=== PATIENT | female | born 1960 | race Caucasian/White ===

== ENCOUNTER → 2018-05-17 08:09 | Outpatient (CLI) | payer OTHER, SELFPAY ==
--- NOTE | 2018-05-17 | DI.MG.S_ITS ---
BILATERAL DIGITAL SCREENING MAMMOGRAM 3D/2D WITH CAD: 05/17/2018 CLINICAL: Routine screening. Comparison is made to exams dated: 02/02/2015 mammogram, 01/30/2014 mammogram, and 01/29/2013 mammogram - [facility]. There are scattered fibroglandular elements in both breasts. Current study was also evaluated with a Computer Aided Detection (CAD) system. No significant masses, calcifications, or other findings are seen in either breast. There has been no significant interval change. IMPRESSION: NEGATIVE There is no mammographic evidence of malignancy. A 1 year screening mammogram is recommended. This exam was interpreted at Station ID: [id number]. NOTE: For mammograms, a report in lay terms will be sent to the patient. Approximately 15% of breast malignancies will not be visualized mammographically. In the management of a palpable breast mass, a negative mammogram must not discourage biopsy of a clinically suspicious lesion. Electronically Signed By: Harshil bell/rao:05/17/2018 14:04:19 letter sent: Normal Exam ACR BI-RADS Category 1: Negative [id number]
--- NOTE | 2018-05-17 | DI.RAD.S_ITS ---
This blank DEXA report has been sent in error by the PACS system. The correct and complete report will be forthcoming in 1-2 days. Thank you for your patience and understanding. Dictated by: Shadi Polanco M.D. on 05/17/2018 at 14:25 Approved by: Shadi Polanco M.D. on 05/17/2018 at 14:29
--- NOTE | 2018-05-17 | DI.US.S_ITS ---
PROCEDURE: US THYROID INDICATIONS: ASYMPTOMATIC MENOPAUSAL/THYROID NODULES TECHNIQUE: Real-time scanning was performed of the thyroid gland, with image documentation. COMPARISON: [facility], US, THYROID, 10/02/2011, 10:13. FINDINGS: Right: Thyroid lobe measures 5.1 x 2 x 1.5 cm, and is homogeneous in echotexture. Left: Thyroid lobe measures 4.9 x 1.0 x 1.5 cm, and is homogenous in echotexture. Isthmus: 2 mm thick. Nodule number: #1 Location: Upper pole of right thyroid lobe Size: 0.7 x 0.4 x 0.5 cm. Composition: Predominantly cystic Echogenicity: Hypoechoic Shape: Wider than tall Margins: Smooth Echogenic foci: None Total points: 3 ACR TI-RADS category: 3 Nodule number: #2 Location: Mid pole of right thyroid lobe Size: 0.7 x 0.5 x 0.6 cm. Composition: Predominantly solid Echogenicity: Markedly hypoechoic Shape: Wider than tall Margins: Smooth Echogenic foci: None Total points: 5 ACR TI-RADS category: 4 Nodule number: #3 Location: Lower pole of right thyroid lobe Size: 0.7 x 0.3 x 0.5 cm. Composition: Predominantly solid Echogenicity: Isoechoic Shape: Wider than tall Margins: Smooth Echogenic foci: None Total points: 3 ACR TI-RADS category: 3 Nodule number: #4 Location: Mid pole of left thyroid lobe Size: 0.9 x 0.5 x 0.6 cm. Composition: Solid Echogenicity: Hypoechoic Shape: Wider than tall Margins: Smooth Echogenic foci: None Total points: 4 ACR TI-RADS category: 4 Nodule number: #5 Location: Lower pole of left thyroid lobe Size: 0.4 x 0.2 x 0.3 cm. Composition: Cystic Echogenicity: Markedly hypoechoic Shape: Wider than tall Margins: Smooth Echogenic foci: None Total points: 3 ACR TI-RADS category: 3 IMPRESSION: Bilateral subcentimeter thyroid nodules as described in detail above. Continued sonographic followup is recommended. ACR TI-RADS definitions and recommendations: TI-RADS 1 (benign): 0 points. FNA not needed. TI-RADS 2 (not suspicious): 2 points. FNA not needed. TI-RADS 3 (mildly suspicious): 3 points. * FNA if 2.5 cm or larger, follow up if 1.5 cm or larger (at 1, 3, and 5 years). TI-RADS 4 (moderately suspicious): 4-6 points. * FNA if 1.5 cm or larger, follow up if 1 cm or larger (at 1, 2, 3, and 5 years). TI-RADS 5 (highly suspicious): 7 points or more. * FNA if 1 cm or larger, follow up if 0.5 cm or larger (every year for 5 years). Dictated by: Shadi Polanco M.D. on 05/17/2018 at 14:02 Approved by: Shadi Polanco M.D. on 05/17/2018 at 14:09
[2018-05-17 08:52] LABS: Add Manual Diff / Slide Review NO; Basophils Absolute Auto 100 /uL (0-100); Basophils Percent Auto 0.5 % (0-2); Eosinophils Absolute Auto 200 /uL (0-450); Eosinophils Percent Auto 2.3 % (2-4); Hematocrit 41.8 % (36-46); Hemoglobin 13.8 g/dL (12.0-16.0); Lymphocytes Absolute Auto 2800 /uL (1100-4500); Lymphocytes Percent Auto 26.5 % (25-40); Mean Corpuscular Hemoglobin 28.6 PG (26-34); Mean Corpuscular Volume 86.9 fL (80-100); Monocytes Absolute Auto 500 /uL (0-900); Monocytes Percent Auto 4.4 % (3-14); Neutrophils Absolute Auto 7000 /uL (1500-7000); Neutrophils Percent Auto 66.3 % (50-75); Platelet Count 311 X10^3/uL (150-400); Red Blood Cell Count 4.81 X10^6/uL (4.0-5.2); Red Cell Distribution Width 13.4 % (11.6-14.8); White Blood Cell Count 10.6 X10^3/uL (4.5-11.0)
[2018-05-17 09:11] LABS: Alanine Aminotransferase 16 IU/L (9-52); Albumin 4.3 g/dL (3.5-5.0); Albumin Globulin Ratio 1.4 (1.0-2.8); Alkaline Phosphatase 98 U/L (38-126); Aspartate Aminotransferase 16 IU/L (14-36); BUN Creatinine Ratio 32.9 (6-22); Bilirubin Total 0.3 mg/dL (0.2-1.3); Blood Urea Nitrogen 23 mg/dL (7-17); Calcium 9.4 mg/dL (8.4-10.2); Carbon Dioxide 25 mmol/L (22-32); Chloride 106 mmol/L (98-107); Cholesterol 199 mg/dL (140-199); Estimated Glomerular Filt Rate > 60.0 mL/min (>60); Globulin 3.1 g/dL (1.7-4.1); Glucose 104 mg/dL (70-100); HDL Cholesterol 49 mg/dL (40-60); HEMOLYSIS < 15 (0-50); LDL Cholesterol Calculated 113 mg/dL (<100); Potassium 4.4 mmol/L (3.4-5.1); Sodium 140 mmol/L (137-145); Total Protein 7.4 g/dL (6.3-8.2); Triglycerides 187 mg/dL (35-150)
== END ==
PROVIDERS: Visit Provider Physician Assistant Medical
DX: Z12.31 Encounter for screening mammogram for malignant neoplasm of breast (principal); E04.2 Nontoxic multinodular goiter; Z78.0 Asymptomatic menopausal state; E03.9 Hypothyroidism, unspecified; E78.2 Mixed hyperlipidemia; F17.200 Nicotine dependence, unspecified, uncomplicated; Z82.62 Family history of osteoporosis; Z51.81 Encounter for therapeutic drug level monitoring
CPT/HCPCS: 36415; 76536; 77063; 77067; 77080; 80053; 80061; 84443; 85025

== ENCOUNTER 2019-03-16 11:36 | Emergency (ER) | payer OTHER, SELFPAY ==
[2019-03-16 11:38] VITALS: BP 129/79; PULSE 95; RESP 18; TEMP 36.4; O2SAT 100
--- NOTE | 2019-03-16 12:16 | PC.NURSE ---
CSM wnl. Pain occasionally radiates down front of right leg. Also c/o right foot pain, ongoing, that feels like previous plantar fasciatis. CSM wnl. + pulse distally. Also c/o skin rash. Ran out of her clobetosol. Would like a refill.
[2019-03-16] MEDS: CYCLOBENZAPRINE 10 MG TABLET PO (13:27)
[2019-03-16] MEDS: ACETAMINOPHEN 325 MG TABLET 650 MG PO (13:27)
[2019-03-16] MEDS: predniSONE 20 MG TABLET 40 MG PO (13:28)
[2019-03-16] MEDS: KETOROLAC 60 MG/2 ML VIAL 30 MG IM (13:29)
[2019-03-16] MEDS: PANTOPRAZOLE 20 MG TABLET PO (13:30)
[2019-03-16 14:40] VITALS: BP 137/91; PULSE 84; RESP 18; O2SAT 99
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
== END 2019-03-16 14:42 | disposition home or self-care (01) ==
PROVIDERS: Emergency Provider Nurse Practitioner Family
DX: S39.012A Strain of muscle, fascia and tendon of lower back, initial encounter (principal); L30.9 Dermatitis, unspecified
CPT/HCPCS: 81003; 96372; 99283; 99284; J1885

== ENCOUNTER → 2020-04-16 07:26 | Outpatient (CLI) | payer OTHER, SELFPAY ==
[2020-04-16 08:48] LABS: Alanine Aminotransferase 17 IU/L (<35); Albumin 4.4 g/dL (3.5-5.0); Albumin Globulin Ratio 1.5 (1.0-2.8); Alkaline Phosphatase 95 U/L (38-126); Aspartate Aminotransferase 24 IU/L (14-36); BUN Creatinine Ratio 22.2 (6-22); Bilirubin Total 0.4 mg/dL (0.2-1.3); Blood Urea Nitrogen 16 mg/dL (7-17); Calcium 9.5 mg/dL (8.4-10.2); Carbon Dioxide 26 mmol/L (22-32); Chloride 107 mmol/L (98-107); Cholesterol 234 mg/dL (140-199); Estimated Glomerular Filt Rate > 60.0 mL/min (>60); Globulin 2.9 g/dL (1.7-4.1); Glucose 108 mg/dL (80-110); HDL Cholesterol 57 mg/dL (40-60); HEMOLYSIS < 15 (0-50); LDL Cholesterol Calculated 132 mg/dL (<100); Potassium 4.2 mmol/L (3.4-5.1); Sodium 138 mmol/L (137-145); Total Protein 7.3 g/dL (6.3-8.2); Triglycerides 226 mg/dL (35-150)
[2020-04-16 08:49] LABS: Hematocrit 41.1 % (36-46); Mean Corpuscular Hemoglobin 29.7 PG (26-34); Mean Corpuscular Volume 87.5 fL (80-100); Platelet Count 271 X10^3/uL (150-400); Red Cell Distribution Width 13.6 % (11.6-14.8); White Blood Cell Count 8.5 X10^3/uL (4.5-11.0)
[2020-04-16 09:54] LABS: TSH w/ Reflex to FT4 1.62 uIU/mL (0.47-4.68)
== END ==
PROVIDERS: PCP Registered Nurse Diabetes Educator; Referring Provider Registered Nurse Diabetes Educator; Visit Provider Registered Nurse Diabetes Educator
DX: E03.9 Hypothyroidism, unspecified (principal); E78.5 Hyperlipidemia, unspecified
CPT/HCPCS: 36415; 80053; 80061; 84443; 85027

== ENCOUNTER 2020-10-17 16:49 | Emergency (ER) | payer OTHER, SELFPAY ==
[2020-10-17 16:55] VITALS: BP 162/98; PULSE 108; RESP 20; TEMP 36.9; O2SAT 97
--- NOTE | 2020-10-17 18:23 | DI.RAD.S_ITS ---
PROCEDURE: XR KNEE LT 3V INDICATIONS: pain, heard a pop TECHNIQUE: Three views of the knee were acquired. COMPARISON: None. FINDINGS: Bones: No fractures or dislocations. No suspicious bony lesions. Soft tissues: Small joint effusion. No suspicious soft tissue calcifications. IMPRESSION: 1. No visible fractures. 2. Small joint effusion may indicate internal derangement. Consider MRI if there is no improvement with conservative management. Dictated by: Miley Avalos M.D. on 10/17/2020 at 18:54 Approved by: Miley Avlaos M.D. on 10/17/2020 at 18:55
--- NOTE | 2020-10-17 19:09 | ED_ITS ---
HPI - Extremity Injury (Lower) General Chief Complaint: Extremity Injury, Lower Stated Complaint: LT KNEE POP Time Seen by Provider: 10/17/20 19:08 Source: patient Mode of arrival: Ambulatory Limitations: no limitations History of Present Illness HPI Narrative: This is a 59-year-old female comes emergency department complaint of left knee pain. Patient felt a pop in left knee after she [place] She states that she has pain with weight-bearing. It feels like the knee wants to give way. Patient describes as being sort of inside the knee itself. She has noted a little bit of swelling. She noted some pain radiating up her leg towards the buttock. Patient denies any prior knee issues. No prior surgeries to her knee. She denies any other injuries. She denies any numbness or tingling down her lower extremity. She has no pain or difficulty with movement her foot or ankle. Patient is on several medications for mental health. She is allergic to penicillin. Related Data Home Medications Medication Instructions Recorded Confirmed ashwaghanda PO 01/20/20 09/02/20 aspirin 81 mg tablet,delayed 81 mg PO DAILY 01/20/20 09/02/20 release diphenhydramine HCl 25 mg capsule 25 mg PO DAILY cap 01/20/20 09/02/20 (Benadryl) melatonin 10 mg capsule 10 mg PO BEDTIME PRN 01/20/20 09/02/20 nitric oxide PO 01/20/20 09/02/20 vitamin B complex (B 1 tab PO DAILY 01/20/20 09/02/20 Complex-Vitamin B12) Previous Rx's Medication Instructions Recorded atorvastatin 20 mg tablet 20 mg PO BEDTIME #90 tab 05/12/20 cyclobenzaprine 10 mg tablet 10 mg PO BEDTIME PRN #30 tab 08/19/20 varenicline 1 mg tablet (Chantix 1 mg PO BID #56 tab 09/02/20 Continuing Month Box) aripiprazole 2 mg tablet (Abilify) 2 mg PO DAILY #90 tab 09/03/20 duloxetine 30 mg capsule,delayed 90 mg PO DAILY #270 cap 09/03/20 release (Cymbalta) Allergies Allergy/AdvReac Type Severity Reaction Status Date / Time azithromycin [From Zithromax] Allergy Intermediate Rash Verified 09/02/20 15:19 Penicillins Allergy Mild rash Verified 09/02/20 15:19 Review of Systems Review of Systems ROS Unobtainable: All systems reviewed & are unremarkable except as noted in HPI and below Patient History Medical History Acne (~1971) Allergies (~2003) Anxiety (~2009) Carpal tunnel syndrome (~2004) Cervical spine fracture Chicken pox (~1965) Chronic back pain (~1995) Colon polyps (~2013) Current smoker Depression Dyshidrotic eczema Dyslipidemia Eczema (~2013) Endometriosis (~1985) Fibromyalgia (~2001) Foot pain (~2019) Hearing loss Heavy menstrual period (~1979) Hypothyroidism (~2009) Impaired fasting blood sugar Irregular menstrual cycle (~1979) Measles (~1967) Painful menstrual periods (~1979) Thyroid nodule (~2009) Wears glasses Surgical History Anesthesia Ectopic (~1985) History of hysterectomy (~1999) Torsion, fallopian tube (~1997) Family History Father Cancer Mother Cancer Grandmother History of heart disease Grandfather History of heart disease Grandmother Cancer Social History Smoking Status: Current every day smoker Smoking Status: Current every day smoker tobacco type: cigarettes alcohol intake frequency: 0-2 drinks per day Substance Use Type: marijuana Exam Narrative Exam Narrative: GENERAL: Alert and oriented x three, female in mild distress. HEENT: Head normocephalic, atraumatic, EOMI, pupils reactive, face symmetric, moist mucous membranes NECK: Supple, full range of motion CARDIOVASCULAR: Regular rate and rhythm without murmurs, rubs or gallops. RESPIRATORY: Breath sounds equal bilaterally, no wheezes rales or rhonchi. EXTREMITIES: Normal range of motion, no clubbing. Patient has swelling of the left knee with some mild bruising on the anterior prepatellar region. Patient has tenderness just inferior to the patella and over the medial tibia. No obvious deformity. Patient has slightly increased laxity with posterior drawer. Valgus and varus testing are normal with anterior drawer being normal. Patient has no other bony tenderness. Normal sensation throughout with otherwise normal movement of the extremity. Patient is able to flex and extend the knee. NEUROLOGICAL: Cranial nerves II through XII grossly intact. Moving all extremities SKIN: Warm, dry, no petechiae, no rashes or lesions. Initial Vital Signs Initial Vital Signs: Vital Signs Temperature 98.5 F 10/17/20 16:55 Pulse Rate 108 H 10/17/20 16:55 Respiratory Rate 20 10/17/20 16:55 Blood Pressure 162/98 H 10/17/20 16:55 Pulse Oximetry 97 10/17/20 16:55 Course Orders Ordered: ED Orders 10/17/20 18:23 XR knee LT 3V Stat Vital Signs Vital signs: Vital Signs - 8 hr 10/17/20 19:45 Pulse Rate 94 H Respiratory Rate 16 Blood Pressure 155/86 H Pulse Oximetry 98 MDM - Extremity Injury (Lower) Imaging Data Extremity x-ray #1: Radiologist's Impression: Launch?[address] [address] XRay Report Signed Patient: Carmen Arevalo MR#: [id number] : 1960 Acct:[id number] Age/Sex: 59 / F Date of Service: 10/17/20 Loc: ED Accession Number: [id number] ?? Procedure: XR knee LT 3V Ordering Provider: Deann Arriaga D.O. PROCEDURE:? XR KNEE LT 3V ? INDICATIONS:? pain, heard a pop ? TECHNIQUE:? Three views of the knee were acquired.? ? COMPARISON:? None. ? FINDINGS:? ? Bones:? No fractures or dislocations.? No suspicious bony lesions.? ? Soft tissues:? Small joint effusion.? No suspicious soft tissue calcifications.? ? ? IMPRESSION:? 1. No visible fractures. 2. Small joint effusion may indicate internal derangement.? Consider MRI if there is no improvement with conservative management.? ? ? Dictated by: Miley Avalos M.D. on 10/17/2020 at 18:54 ? ? Approved by: Miley Avalos M.D. on 10/17/2020 at 18:55?? [facility] Narrative Medical decision making narrative: 59-year-old female with likely ligamentous or tendon injury to her left knee. Patient does not have any fracture. She has some mild laxity with posterior drawer. Patient was given knee immobilizer, crutches. And plan for follow-up with primary care but referral for Orthopedics was also given. Discharge Plan Departure Patient Disposition: Home Clinical Impression: Left knee sprain Instructions: DI for Knee Sprain Activity Restrictions/Additional Instructions: Follow-up with your primary care physician in the next week for recheck. If your symptoms have completely resolved you do not have to follow-up. Weightbear as tolerated. Use crutches until you can weightbear without any pain. You may take Aleve as directed. He may also add Tylenol up to a 1000 mg every 8 hours as needed for pain. Splint Care: Keep the immobilizerclean and dry. Elevated affected body part to decrease swelling. OK to use ice pack on the affected body part. Use for 15-20 minutes each time, for 5-6x per day. If you develop worsening pain, numbness, tingling, discoloration of the affected body part, loosen knee immobilizer,and either see your doctor for an urgent re-assessment, or return to the Emergency Department. Return to the Emergency Department for any new or worsening symptoms. Prescriptions: No Action cyclobenzaprine 10 mg tablet 10 mg PO BEDTIME PRN (Reason: muscle spasm) Qty: 30 RF: 1 aspirin 81 mg tablet,delayed release (DR/EC) 81 mg PO DAILY RF: 0 nitric oxide tablet PO RF: 0 vitamin B complex [B Complex-Vitamin B12] Tablet 1 tab PO DAILY RF: 0 melatonin 10 mg capsule 10 mg PO BEDTIME PRNRF: 0 diphenhydramine HCl [Benadryl] 25 mg capsule 25 mg PO DAILY RF: 0 ashwaghanda 2,000 mg PO RF: 0 atorvastatin 20 mg tablet 20 mg PO BEDTIME Qty: 90 RF: 3 Chantix Continuing Month Box 1 mg tablet 1 mg PO BID Qty: 56 RF: 2 aripiprazole [Abilify] 2 mg tablet 2 mg PO DAILY Qty: 90 RF: 2 duloxetine [Cymbalta] 30 mg capsule,delayed release(DR/EC) 90 mg PO DAILY Qty: 270 RF: 2 Referrals: Elijah Moore ARNP [Primary Care Provider] - Mike Saldana MD [Physician] -
[2020-10-17 19:45] VITALS: BP 155/86; PULSE 94; RESP 16; O2SAT 98
== END 2020-10-17 19:46 | disposition home or self-care (01) ==
PROVIDERS: Emergency Provider Emergency Medicine; PCP Registered Nurse Diabetes Educator
DX: S83.92XA Sprain of unspecified site of left knee, initial encounter (principal); X58.XXXA Exposure to other specified factors, initial encounter
CPT/HCPCS: 73562; 99283

== ENCOUNTER → 2023-04-04 | Outpatient (CLI) | payer OTHER, SELFPAY ==
[2023-04-04 07:56] LABS: Add Manual Diff / Slide Review NO; Basophils Absolute Auto 100 /uL (0-100); Basophils Percent Auto 0.8 % (0-2); Eosinophils Absolute Auto 300 /uL (0-450); Eosinophils Percent Auto 2.6 % (2-4); Hematocrit 42.4 % (36-46); Hemoglobin 14.4 g/dL (12.0-16.0); Lymphocytes Absolute Auto 3100 /uL (1100-4500); Lymphocytes Percent Auto 28.9 % (25-40); Mean Corpuscular Hemoglobin 29.6 PG (26-34); Mean Corpuscular Volume 87.3 fL (80-100); Monocytes Absolute Auto 500 /uL (0-900); Monocytes Percent Auto 4.8 % (3-14); Neutrophils Absolute Auto 6700 /uL (1500-7000); Neutrophils Percent Auto 62.9 % (50-75); Platelet Count 300 X10^3/uL (150-400); Red Blood Cell Count 4.86 X10^6/uL (4.0-5.2); Red Cell Distribution Width 14.1 % (11.6-14.8); White Blood Cell Count 10.7 X10^3/uL (4.5-11.0)
[2023-04-04 08:05] LABS: Hemoglobin A1C% w Est Avg Glu 5.7 % (4.0-6.0)
[2023-04-04 08:30] LABS: Alanine Aminotransferase 20 IU/L (<35); Albumin 4.3 g/dL (3.5-5.0); Albumin Globulin Ratio 1.4 (1.0-2.8); Alkaline Phosphatase 100 U/L (38-126); Aspartate Aminotransferase 23 IU/L (14-36); BUN Creatinine Ratio 20.2 (6-22); Bilirubin Total 0.5 mg/dL (0.2-1.3); Blood Urea Nitrogen 17 mg/dL (7-17); Calcium 9.7 mg/dL (8.4-10.2); Carbon Dioxide 23 mmol/L (22-32); Chloride 104 mmol/L (98-107); Cholesterol 216 mg/dL (140-199); Estimated Glomerular Filt Rate > 60 mL/min (>60); Glucose 112 mg/dL (80-110); HDL Cholesterol 56 mg/dL (40-60); HEMOLYSIS < 15 (0-50); LDL Cholesterol Calculated 96 mg/dL (<100); Potassium 4.4 mmol/L (3.4-5.1); Sodium 139 mmol/L (137-145); Total Protein 7.3 g/dL (6.3-8.2); Triglycerides 318 mg/dL (35-150)
[2023-04-04 08:55] LABS: TSH w/ Reflex to FT4 2.67 uIU/mL (0.47-4.68)
== END ==
PROVIDERS: PCP Family Medicine; Referring Provider Family Medicine; Visit Provider Family Medicine
DX: E03.9 Hypothyroidism, unspecified (principal); M79.7 Fibromyalgia; E78.5 Hyperlipidemia, unspecified; F32.9 Major depressive disorder, single episode, unspecified; F41.9 Anxiety disorder, unspecified; R73.01 Impaired fasting glucose
CPT/HCPCS: 36415; 80053; 80061; 83036; 84443; 85025

== ENCOUNTER → 2024-07-24 10:31 | Outpatient (CLI) | payer OTHER, SELFPAY ==
[2024-07-24 12:34] LABS: Add Manual Diff / Slide Review NO; Basophils Absolute Auto 0 /uL (0-100); Basophils Percent Auto 0.5 % (0-2); Eosinophils Absolute Auto 200 /uL (0-450); Eosinophils Percent Auto 2.5 % (2-4); Hematocrit 40.6 % (36-46); Hemoglobin 13.4 g/dL (12.0-16.0); Lymphocytes Absolute Auto 2200 /uL (1100-4500); Lymphocytes Percent Auto 32.5 % (25-40); Mean Corpuscular HGB Conc 33.1 % (30-36); Mean Corpuscular Hemoglobin 29.7 PG (26-34); Mean Corpuscular Volume 89.7 fL (80-100); Monocytes Absolute Auto 300 /uL (0-900); Monocytes Percent Auto 4.8 % (3-14); Neutrophils Absolute Auto 4100 /uL (1500-7000); Neutrophils Percent Auto 59.7 % (50-75); Platelet Count 263 X10^3/uL (150-400); Red Blood Cell Count 4.52 X10^6/uL (4.0-5.2); Red Cell Distribution Width 14.4 % (11.6-14.8); White Blood Cell Count 6.9 X10^3/uL (4.5-11.0)
[2024-07-24 12:57] LABS: HEMOLYSIS < 15 (0-50); Iron 89 ug/dL (37-170)
[2024-07-24 13:09] LABS: Hemoglobin A1C% w Est Avg Glu 5.6 % (4.0-6.0)
[2024-07-24 13:10] LABS: Percent Iron Saturation 25 % (15-50); Total Iron Binding Capacity 360 ug/dL (265-497); Transferrin 315 mg/dL (206-381)
[2024-07-24 13:11] LABS: Alanine Aminotransferase 19 IU/L (<35); Albumin 4.3 g/dL (3.5-5.0); Albumin Globulin Ratio 1.8 (1.0-2.8); Alkaline Phosphatase 86 U/L (38-126); Aspartate Aminotransferase 27 IU/L (14-36); BUN Creatinine Ratio 28.9 (6-22); Bilirubin Total 0.4 mg/dL (0.2-1.3); Blood Urea Nitrogen 22 mg/dL (7-17); Calcium 9.3 mg/dL (8.4-10.2); Carbon Dioxide 25 mmol/L (22-32); Chloride 103 mmol/L (98-107); Cholesterol 202 mg/dL (140-199); Estimated Glomerular Filt Rate > 60 mL/min (>60); Globulin 2.4 g/dL (1.7-4.1); Glucose 89 mg/dL (70-99); HDL Cholesterol 68 mg/dL (40-60); HEMOLYSIS < 15 (0-50); LDL Cholesterol Calculated 113 mg/dL (<100); Sodium 137 mmol/L (137-145); Total Protein 6.7 g/dL (6.3-8.2); Triglycerides 104 mg/dL (35-150)
[2024-07-24 13:28] LABS: TSH w/ Reflex to FT4 0.72 uIU/mL (0.47-4.68)
== END ==
LOC: RESP 10:32
PROVIDERS: PCP Family Medicine; Referring Provider Family Medicine; Visit Provider Family Medicine
DX: R06.02 Shortness of breath (principal); L65.9 Nonscarring hair loss, unspecified; K57.92 Diverticulitis of intestine, part unspecified, without perforation or abscess without bleeding; Z13.6 Encounter for screening for cardiovascular disorders; E03.9 Hypothyroidism, unspecified; Z87.891 Personal history of nicotine dependence; R94.2 Abnormal results of pulmonary function studies
CPT/HCPCS: 36415; 80053; 80061; 83036; 83540; 83550; 84443; 85025; 94060; 94726; 94729

== ENCOUNTER → 2024-08-07 07:04 | Outpatient (CLI) | payer OTHER, SELFPAY ==
--- NOTE | 2024-08-07 07:09 | DI.CT.S_ITS ---
PROCEDURE: CT LUNG LOW DOSE SCREENING INDICATIONS: History of tobacco abuse, tobacco abuse TECHNIQUE: Noncontrast 2.0-2.5 mm thick sections acquired from the pulmonary apices to the posterior costophrenic angles. 7 mm thick axial MIP, and 5 mm coronal and sagittal reformats were then acquired. For radiation dose reduction, the following was used: automated exposure control, adjustment of mA and/or kV according to patient size. COMPARISON: None. FINDINGS: Image quality: Diagnostic. Lower Neck: No enlarged lymph nodes. Thyroid: No thyroid nodules which require sonographic follow up, per consensus guidelines. Axillae: No enlarged lymph nodes. Chest Wall: Unremarkable. Bones: Unremarkable. Lungs and Pleura: No pneumothorax or pleural effusions. No consolidation or suspicious nodules. Heart: Heart size is normal. No pericardial effusion. Thoracic Vessels: The aorta and pulmonary arteries demonstrate normal size. Mediastinum and Lilian: No enlarged lymph nodes. Esophagus: No wall thickening. No hiatal hernia. Upper Abdomen: Visualized upper abdomen solid organs and bowel loops appear normal. IMPRESSION: No suspicious pulmonary nodules. LUNG-RADS 1; continued annual screening, if eligible. Clinically Significant Non-pulmonary Findings: None. Dictated by: Brett Regalado M.D. on 08/07/2024 at 16:43 Approved by: Brett Regalado M.D. on 08/07/2024 at 16:48
--- NOTE | 2024-08-07 07:09 | DI.MG.S_ITS ---
MM screening mammo BI: 08/07/2024. BI-RADS: 1 CLINICAL: 63-year old female for bilateral screening mammogram. Tyrer-Cuzick lifetime risk of 3.8%. No personal or first-degree family history of breast cancer. PRIOR EXAMS 05/17/2018, 02/02/2015. MAMMOGRAPHY TECHNIQUE: 2D and 3D (tomosynthesis) digital mammographic views obtained, with additional images as needed for full coverage. Current study was also evaluated with a Computer Aided Detection (CAD) system. DENSITY A. The breasts are almost entirely fatty. MAMMOGRAPHY FINDINGS Bilateral: No suspicious mass, asymmetry, microcalcification, or other abnormality seen. IMPRESSION: * No evidence of malignancy. RECOMMENDATIONS Bilateral * Annual screening mammography. OVERALL ASSESSMENT CATEGORY BI-RADS-1: Negative. The [employer] recommends annual screening mammography beginning at age 40 for women with average risk of breast cancer. ELECTRONICALLY SIGNED: Harshil Adler M.D. on 08/10/2024 at 09:24:36 PM PT Interpreting Station ID: [id number]
--- NOTE | 2024-08-07 07:09 | DI.US.S_ITS ---
PROCEDURE: US THYROID INDICATIONS: Thyroid nodule TECHNIQUE: Real-time scanning was performed of the thyroid gland, with image documentation. COMPARISON: [facility], US, US THYROID, 05/17/2018, 13:00. FINDINGS: Thyroid: Right lobe measures 4.9 x 1.9 x 2.1 cm. Left lobe measures 4.4 x 1.8 x 1.6 cm. Isthmus is 0.3 cm thick. Echotexture is mildly heterogeneous, with multiple tiny thyroid nodules. Harbor Department Manager examples include: Nodule number: 1 Location: Left inferior pole Size: 1.0 x 0.7 x 0.8 cm. Composition: Solid Echogenicity: Isoechoic Shape: wider than tall. Margins: Smooth Echogenic foci: None Total points: 3 ACR TI-RADS category: 3 Nodule number: 2 Location: Right inferior pole Size: 1.4 x 1.0 x 1.2 cm. Composition: Mixed cystic and solid Echogenicity: Isoechoic Shape: wider than tall. Margins: Smooth Echogenic foci: None Total points: 2 ACR TI-RADS category: 2 IMPRESSION: Multiple small thyroid nodules, which do not have suspicious features and do not meet size criteria for follow-up or biopsy. ACR TI-RADS definitions and recommendations: TI-RADS 1 (benign): 0 points. FNA not needed. TI-RADS 2 (not suspicious): 2 points. FNA not needed. TI-RADS 3: 3 points. * FNA if 2.5 cm or larger, follow up if 1.5 cm or larger (at 1, 3, and 5 years). TI-RADS 4: 4-6 points. * FNA if 1.5 cm or larger, follow up if 1 cm or larger (at 1, 2, 3, and 5 years). TI-RADS 5: 7 points or more. * FNA if 1 cm or larger, follow up if 0.5 cm or larger (every year for 5 years). Dictated by: Lukasz Tang M.D. on 08/08/2024 at 12:57 Approved by: Lukasz Tang M.D. on 08/08/2024 at 13:00
--- NOTE | 2024-08-07 07:09 | DI.MRI.S_ITS ---
PROCEDURE: MR SHOULDER RT WO CON INDICATIONS: RIGHT SHOULDER PAIN TECHNIQUE: Noncontrast oblique coronal T2 fast spin echo with fat saturation, oblique sagittal T1 spin echo and T2 fast spin echo with fat saturation, axial T1 spin echo and T2 fast spin echo with fat saturation through the shoulder. COMPARISON: None. FINDINGS: Image quality: Diagnostic Rotator cuff: Bulk: Moderate atrophy of the supraspinatus and subscapularis Teres minor: Intact Supraspinatus: Full-thickness partial width tear of the proximal tendon. Some of the anterior fibers remain intact Infraspinatus: Moderate tendinopathy and partial-thickness articular surface tears Subscapularis: Full-thickness tear involving the mid fibers. Bones and bursae: GH joint: Moderate glenohumeral effusion and arthrosis. Effusion contains debris AC joint: Severe arthrosis Humeral head: No acute fracture Scapula and acromion: No acute fracture Bursa: Joint effusion communicates with the bursa Capsule: Labrum: Circumferential degenerative changes. Thickening of the anterior labrum probably from prior injury and significant scarring. Long head biceps tendon: Tear in the intra-articular aspect. Tendinopathy and split tear extends to the bicipital groove. Joint effusion also extends to the bicipital groove IGHL: Intact Rotator interval: Effaced with edema Soft tissues: No axillary adenopathy. Lungs are not well seen. IMPRESSION: Full-thickness supraspinatus and subscapularis tears. Some of the anterior supraspinatus fibers remain intact. Moderate associated atrophy of the muscle bellies. Moderate tendinopathy and partial-thickness tears also seen in the infraspinatus. Moderate glenohumeral effusion and arthrosis. Effusion contains debris indicating synovitis. Severe acromioclavicular arthrosis. Capsular hypertrophy impinges in the subacromial space. Long head biceps intra-articular tear and tendinopathy with split tear in the bicipital groove. Circumferential degenerative changes of the labrum. Thickening anteriorly may be from prior injury with scarring. Joint effusion communicates with the bursa. Dictated by: Lalit Chaidez M.D. on 08/09/2024 at 15:24 Approved by: Lalit Chaidez M.D. on 08/09/2024 at 15:29
--- NOTE | 2024-08-07 07:09 | DI.ECHO.S_ITS ---
[place] [facility] : : [address] : : [place] : : [id number] : : Phone: [phone] Echocardiogram Report + + :Name: JOCY RIVAS Study Date: 08/07/2024 Height: 67 in : :[facility] ReadingLocation: Weight: 215 lb : : Gender: Female BSA: 2.1 m2 : :: 1960 Age: 63 yrs BP: 152/104 mmHg: :Reason For Study: SHORTNESS OF BREATH : :Ordering Physician: LARISSA, : :TREVOR Cortez Performed By: Socrates Stone : :Referring: TREVOR DIAS : + + Interpretation Summary 1. The left ventricular contractility is normal. Estimated ejection fraction is greater than 55% with no segmental wall motion abnormalities. No LVH. Indeterminate diastolic function. 2. The right ventricular contractility is normal. 3. Biatrial enlargement. Right and left ventricles are of normal size. 4. No significant valvular abnormalities noted. 5. No obvious intracardiac shunts. 6. No obvious intracardiac masses nor thrombi. 7. No hemodynamically significant pericardial effusion. 8. Low right-sided filling pressures. Conclusion: Normal biventricular systolic function with no significant valvular abnormalities. Procedure: A two-dimensional transthoracic echocardiogram with color flow and Doppler was performed. The study quality was technically good. There is no prior echocardiogram noted for this patient. The patient was in normal sinus rhythm during the exam. Left Ventricle: The left ventricle is normal in size. There is normal left ventricular wall thickness. There is no ventricular septal defect visualized. The ejection fraction is estimated to be 55-60%. There are no focal wall motion abnormalities. Right Ventricle: The right ventricle is normal in size and function. Atria: The left atrium is moderately dilated. The right atrium is mildly dilated. There is no Doppler evidence for an interatrial shunt. Mitral Valve: The mitral valve leaflets appear normal. There is no evidence of stenosis, fluttering, or prolapse. There is trace mitral regurgitation. Aortic Valve: The aortic valve is trileaflet. The aortic valve opens well. There is trace aortic regurgitation. Tricuspid Valve: The tricuspid valve leaflets are thin and pliable. There is trace tricuspid regurgitation. Pulmonic Valve: The pulmonic valve is not well seen, but is grossly normal. There is no pulmonic valvular regurgitation. Great Vessels: The aortic root is normal size. The dimensions of the ascending aorta are normal. The pulmonary artery is normal size. The IVC is of normal diameter and collapses greater than 50% with a sniff. This suggests a low right atrial pressure of 3 mm Hg. Pericardium/ Pleura There is no pericardial effusion. There is no pleural effusion. MMode/2D Measurements & Calculations LVIDd: 5.0 cm LVOT diam: 2.0 cm LVIDs: 3.3 cm Ao root diam: 3.4 cm FS: 33.4 % asc Aorta Diam: 3.2 cm EPSS: 0.86 cm Ao Arch Diam (Prox Trans): 2.0 cm IVSd: 1.0 cm LVPWd: 0.96 cm LV patterson. diameter/BSA (cm/m^2): 2.4 LV sys. diameter/BSA (cm/m^2): 1.6 LA A2 area: 24.7 cm2 RA long axis: 5.1 cm LA A4 area: 24.7 cm2 RA area: 16.9 cm2 LA length (vol): 6.0 cm RA vol: 47.1 ml LA vol: 86.9 ml RA : 22.6 ml/m2 LA vol index: 41.7 ml/m2 IVC diam: 1.9 cm RVD1 (basal): 3.5 cm RVD2 (mid): 2.2 cm TAPSE: 2.4 cm Doppler Measurements & Calculations Ao V2 max: 157.5 cm/sec LVOT Max Homero: 122.0 cm/sec Ao V2 mean: 114.4 cm/sec LV V1 max P.0 mmHg Ao max P.9 mmHg LV V1 VTI: 25.8 cm Ao mean P.7 mmHg ANURAG(I,D): 2.6 cm2 Ao V2 VTI: 32.2 cm ANURAG(V,D): 2.5 cm2 sev ratio: 0.80 ANURAG indexed to BSA (cm^2/m^2): 1.2 MV E max homero: 63.6 cm/sec TR max homero: 264.8 cm/sec MV A max homero: 92.7 cm/sec TR max P.1 mmHg MV E/A: 0.69 PA V2 max: 119.9 cm/sec Med Peak E' Homero: 5.5 cm/sec PA V2 mean: 85.4 cm/sec E/E' med: 11.5 PA mean P.2 mmHg Lat Peak E' Homero: 7.7 cm/sec PA pr(Accel): 36.2 mmHg E/E' lat: 8.3 E/e' average: 9.9 MV dec time: 0.19 sec SV(LVOT): 82.9 ml Reading Physician:ALVA
== END ==
LOC: MRI 07:04
PROVIDERS: PCP Family Medicine; Referring Provider Family Medicine; Visit Provider Orthopaedic Surgery
DX: Z12.31 Encounter for screening mammogram for malignant neoplasm of breast (principal); R92.313 Mammographic fatty tissue density, bilateral breasts; Z12.2 Encounter for screening for malignant neoplasm of respiratory organs; Z87.891 Personal history of nicotine dependence; E04.2 Nontoxic multinodular goiter; R06.02 Shortness of breath; M75.121 Complete rotator cuff tear or rupture of right shoulder, not specified as traumatic; M19.011 Primary osteoarthritis, right shoulder; M19.012 Primary osteoarthritis, left shoulder; M25.811 Other specified joint disorders, right shoulder; M25.812 Other specified joint disorders, left shoulder; S46.111A Strain of muscle, fascia and tendon of long head of biceps, right arm, initial encounter; M25.411 Effusion, right shoulder
CPT/HCPCS: 71271; 73221; 76536; 77063; 77067; 93306

== ENCOUNTER → 2024-09-11 16:42 | Outpatient (CLI) | payer OTHER, SELFPAY | PROVIDERS: PCP Family Medicine; Visit Provider Nurse Practitioner Family | DX: L02.429 Furuncle of limb, unspecified (principal) | CPT/HCPCS: 87070; 87075; 87205 ==

== ENCOUNTER → 2024-10-20 07:42 | Outpatient (CLI) | payer OTHER, SELFPAY ==
--- NOTE | 2024-10-20 08:01 | DI.MRI.S_ITS ---
PROCEDURE: MR SHOULDER RT WO CON INDICATIONS: biceps tendon tear proximal - surgical planning TECHNIQUE: Noncontrast oblique coronal T2 fast spin echo with fat saturation, oblique sagittal T1 spin echo and T2 fast spin echo with fat saturation, axial T1 spin echo and T2 fast spin echo with fat saturation through the shoulder. COMPARISON: [facility], MR, MR SHOULDER RT WO CON, 08/07/2024, 7:17. FINDINGS: Image quality: Excellent. Rotator cuff: Full-thickness rupture of distal supraspinatus at its insertion on humeral head is seen with up to 3.4 cm medial retraction of torn tendon fibers to the level of acromioclavicular joint. Low to moderate grade articular surface partial- thickness tear involving anterior to mid fibers of distal infraspinatus at its insertion on humeral head is seen extending to musculotendinous junction. Moderate grade partial- thickness tear involving superior to mid fibers of distal subscapularis. Sagittal images demonstrate moderate supraspinatus muscle atrophy. Bones and bursae: Superior migration of humeral head in relation to glenoid. Moderate acromioclavicular joint and glenohumeral joint osteoarthritic changes are seen. No acute fracture or dislocation. Moderate joint effusion and subacromial subdeltoid bursal fluid, no loose bodies. Capsule and soft tissues: Signal abnormality and fraying involving superior anterior glenoid labrum is seen suggestive of superior anterior labral tear. There is rupture of the long head of biceps tendon at its proximal insertion with distal retraction of torn bicipital tendon within bicipital groove along anterior aspect of proximal humeral shaft below the level of distal subscapularis insertion. The rotator interval appears normal, without fibrosis. The coracohumeral ligament is normal in thickness. IMPRESSION: 1. Study is for surgical planning. 2. Full-thickness rupture involving distal supraspinatus with up to 3.4 cm medial retraction of torn tendon fibers to the level of acromioclavicular joint. Moderate supraspinatus muscle atrophy. 3. Low to moderate grade articular surface partial-thickness tear involving anterior to mid fibers of distal infraspinatus extending to musculotendinous junction. 4. Moderate grade partial-thickness tear involving superior to mid fibers of distal subscapularis. 5. Moderate acromioclavicular joint and glenohumeral joint osteoarthritis. No acute fracture or dislocation. Moderate joint effusion and subacromial subdeltoid bursal fluid, no loose bodies. 6. Ruptured proximal long head of biceps tendon at its proximal insertion with inferior retraction of torn tendon fibers within bicipital groove to the level below the subscapularis tendon insertion. 7. Suggestion of superior anterior glenoid labral tear . Dictated by: Shadi Polanco M.D. on 10/20/2024 at 10:26 Approved by: Shadi Polanco M.D. on 10/20/2024 at 10:32
== END ==
LOC: MRI 07:43
PROVIDERS: PCP Family Medicine; Referring Provider Family Medicine; Visit Provider Orthopaedic Surgery
DX: M75.121 Complete rotator cuff tear or rupture of right shoulder, not specified as traumatic (principal); S46.111A Strain of muscle, fascia and tendon of long head of biceps, right arm, initial encounter; M25.411 Effusion, right shoulder; M19.011 Primary osteoarthritis, right shoulder; M19.012 Primary osteoarthritis, left shoulder
CPT/HCPCS: 73221

== ENCOUNTER 2024-12-04 06:12 | Day surgery (SDC) | payer MEDICARE, OTHER, SELFPAY ==
[2024-10-17 14:57] VITALS: BMI 33.6
[2024-11-24 14:00] VITALS: BMI 33.6
[2024-12-04] VITALS (11 sets, daily range): BP systolic 95–136; BP diastolic 47–103; PULSE 81–110; RESP 14–22; TEMP 36.1–36.3; O2SAT 90–99
--- NOTE | 2024-12-04 06:58 | PM.PREOP ---
Pre-operative Note COVID-19 COVID-19 status: Not tested Interval Note History & Physical reviewed/Exam performed by Physician: Yes Changes to H&P: No
[2024-12-04] MEDS: LACTATED RINGERS 1,000 ML 84 ML IV ×2 (07:18→08:50)
--- NOTE | 2024-12-04 08:40 | SUR.OPER ---
Beach chair with Tramano shoulder positioner. Lower body on padded OR bed. Head in foam padded head cradle, secured with straps. Non-operative arm secured <90 degrees abduction. Pillow under knees. Safety belt at thigh. Footboard . Final positioning done by provider
[2024-12-04] MEDS: SODIUM CHLORIDE IRRIG SOLUTION 3,000 ML, EPINEPHrine 3 MG IRR (09:36)
[2024-12-04] MEDS: ALBUTEROL 2.5 MG/3 ML NEB (ADULT) INH (10:20)
--- NOTE | 2024-12-04 10:23 | PM.OP.1 ---
Operative Date/Time/Diagnoses Date of procedure: 12/04/24 Time of procedure: 08:30 Pre-op diagnosis: right shoulder rotator cuff tear Post-op diagnosis: same Procedure & Clinicians Procedure: right shoulder arthroscopic rotator cuff repair. Same procedure(s) as scheduled: Yes Surgeon: Makenna Veras Assisted?: Yes Roadability Machine Operator: Nimco Abrams Anesthesia Type: General Operative Notes Findings: See below Closure Type: primary Specimen(s): none sent Applied: none Estimated Blood Loss (mL): 5 Blood products transfused: none Procedure in detail: Procedure: Preoperative diagnosis: 1. Full-thickness rotator cuff tear 2. Biceps tendon rupture Postoperative diagnosis same as above including full-thickness supraspinatus tear split tear Procedure performed: 1. Rotator cuff repair Implants: 1. 4.75 BioComposite SwiveLock x1. The patient was met in the preoperative hold area the right upper extremity was signed as the correct extremity. The patient was taken back to the operating room after an interscalene block was performed by anesthesia. The patient was placed in the beach chair position. All bony prominences were padded. The patient was positioned in the beach chair ensuring his neck was in neutral alignment. The patient was prepped and draped in the standard sterile fashion. A time-out was performed confirming the correct patient, correct procedure, correct extremity, initials on the operative site and administration of IV antibiotics A standard posterolateral viewing portal was utilized. An a diagnostic arthroscopy was performed. The patient had a ruptured biceps tendon. A full-thickness supraspinatus tear that was identified. The biceps stump was debrided. After finishing the diagnostic arthroscopy I then placed the arthroscopic instruments in the subacromial space and the subacromial space was debrided. I identified the rotator cuff tear and this was a full-thickness supraspinatus tear vertical split tear through the anterior aspect of the supraspinatus and posterior aspect of the supraspinatus. The anterior portion was retracted anteriorly and was easily mobilized to the posterior portion of the supraspinatus. Used a total of 3 FiberWire not at sutures to repair the [id number] defects. I then placed a FiberTape suture and threaded it into a SwiveLock and placed this at the footprint. This maintain a solid repair. I internally and externally rotated the shoulder and that rotator cuff moved in continuity. An family medicine physician assistant was utilized during the case to prep and drape the patient, run the camera, and for closure. All as were copiously irrigated and the arthroscopy portals were closed with 3-0 nylon. A sterile dressing was applied of Xeroform plain gauze Medipore tape. Patient was awoken and taken to the PACU in stable condition. Same procedure(s) as scheduled: Yes Indications: See pre op H&P Surgeon: Makenna Veras Roadability Machine Operator: Cyn Montaño Anesthesia Type: General and Peripheral nerve block Operative Notes Findings: seee above Closure Type: primary Specimen(s): none sent Applied: none Estimated Blood Loss (mL): 5 Blood products transfused: none Complications: none Post-operative Condition: stable Disposition: PACU Plan for aftercare: The patient will be in a sling for a total of 6 weeks. At that point he will start physical therapy. He will return to clinic in 2 weeks for suture removal. Complications: none Post-operative Condition: stable Disposition: PACU
== END 2024-12-04 12:00 | disposition home or self-care (01) ==
PROVIDERS: Family Provider Family Medicine; PCP Family Medicine; Referring Provider Orthopaedic Surgery; Visit Provider Orthopaedic Surgery
PROC: (CPT 29827; principal; 2024-12-04 07:45)
DX: M75.121 Complete rotator cuff tear or rupture of right shoulder, not specified as traumatic (principal); S46.111A Strain of muscle, fascia and tendon of long head of biceps, right arm, initial encounter; M19.011 Primary osteoarthritis, right shoulder; W19.XXXA Unspecified fall, initial encounter; G89.18 Other acute postprocedural pain; Z87.891 Personal history of nicotine dependence
CPT/HCPCS: 29827; 29822; 64415; C1713; J0165; J0689; J1100; J1885; J2405; J2704; J3010; J7120; J7613

== ENCOUNTER 2024-12-30 13:45 | Outpatient (RCR) | payer MEDICARE, OTHER, SELFPAY ==
--- NOTE | 2024-12-17 14:24 | PT.OPPOC ---
Physical, Occupational & Speech Therapy At [facility] Current Diagnoses Pain, unspecified (12/17/24) Visit Care Team Role Provider Type Josie Gould MD Family Provider Physician Primary Care Provider Specialty: Family Practice MARINE STRUCTURAL WELDER Address: [address] [place], [address] Email: [email or web address] Makenna Veras DO Attending Provider Physician Referring Provider Specialty: Orthopedics Orthopedic Surgery Address: [address] [place] [address], [id number] Email: [email or web address] Plan Of Care PT OP: Cervical/Upper Extremity Start: 12/17/24 13:10 Freq: Status: Active Protocol: Document 12/17/24 13:10 Husam (Rec: 12/17/24 14:23 ZEV [id number]) Out-Patient Physical Therapy Visit Information Visit Information Visit Type Initial Evaluation Visit Start Time 13:10 Visit Stop Time 13:50 Visit Number 1 Number of PUMP STITCHER Visits 0 Progress Note Due 01/16/25 OP-PT Subjective Patient Comments Patient Comments History of current diagnosis: Patient is s/p R supraspinatus repair on 12/04/[address] Veras. Patient reports that she hurt her shoulder at the start of October 2024 when she tried to catch herself when she tripped on a sloped surface. Patient has been non- compliant with precautions at this point. Precautions: In sling for two weeks. Patient reports she has not been compliant with this and has been moving her shoulder around a little bit. Occupation: Retired - worked as editing computer publisher for [employer] Physical activities/ hobbies: Walking, painting, acrylic tables Pain location: R shoulder Pain description: burning Pain 0-10/10 (current): 0/10 Pain 0-10/10 (worst): 5/10 - after surgery Pain 0-10/10 (best): 0/10 Aggravating: moving shoulder around too much Alleviating: rest Function prior to injury: Independent with all ADLs Function current: Independent with all ADLs - limited with reaching, lifting, brushing teeth Patient goals: Return to prior level of function Patient Questionnaires Quick Dash- Upper Extremity Quick Dash UE Score 52.3 Quick Dash UE 40 to 59% Impaired (Score 40-59) Impairment Shoulder Goniometric Range of Motion Shoulder Measured in Degrees Right Passive Flexion 90 Abduction 90 External Rotation at 60 0 degrees Abduction Internal Rotation 30 Left Passive Flexion 175 Abduction 175 External Rotation at 90 90 degrees Abduction Internal Rotation 35 Physical Therapy Assessment Rehab Potential Rehabilitation Good Potential Evaluation Complexity Number of Personal 0 Factors/ Comorbidities Number of Body 1-2 Systems Impaired Clinical Stable Presentation at Evaluation Impairments Impairments Activity Tolerance,Coordination,Functional Activities, Functional Mobility,Pain,Posture,ROM,Soft Tissue Mobility,Strength Goals Three Impairment Strength Short Term Goal (STG Patient will demonstrate an increase in R shoulder ) strength to 3+/5 in order to better function with lifting. STG Duration 8 weeks Lithograph Designer Goal (LTG) Patient will demonstrate an increase in R shoulder strength to 4/5 in order to better function with lifting. LTG Duration 12 weeks Two Impairment General function Short Term Goal (STG Patient will demonstrate a reduction in QuickDASH score ) to 42 in order to show an reduction in self-perceived disability. STG Duration 4 weeks Lithograph Designer Goal (LTG) Patient will demonstrate a reduction in QuickDASH score to 32 in order to show an reduction in self-perceived disability. LTG Duration 8 weeks One Impairment Shoulder ROM Short Term Goal (STG Patient will demonstrate an increase in shoulder ) flexion AAROM to 130 degrees in order to progress towards better function with reaching activities. STG Duration 4 weeks Prison Goal (LTG) Patient will demonstrate an increase in shoulder flexion AAROM to 160 degrees in order to progress towards better function with reaching activities. LTG Duration 6 weeks Assessment Summary Assessment Patient presenting to PT s/p R supraspinatus repair on 12/04/[address] Veras. Functional deficits include reaching, lifting, and carrying things. Objective investigation revealed deficits in R shoulder ROM (See objective measures: flexion, abduction, ER), and function (see measures: Quick DASH). Presentation is consistent with normal post-operative deficits and patient will benefit from PT to address deficits and return to prior level of function. Physical Therapy Plan Frequency and Duration Frequency of 2x/Week Treatment Duration of 12 treatment (weeks) Plan of Care Start 12/17/24 Date Plan of Care End 03/17/25 Date Therapeutic Interventions Therapeutic Coordination Training,Home Exercise Program,Joint Interventions Mobilizations,Manual Therapy,Neuromuscular Re-education ,Patient/Caregiver Education,Sensory Integration,Soft Tissue Mobilization,Taping,Therapeutic Activities, Therapeutic Exercises Modalities Biofeedback,Cold Pack/Ice Massage,Electric Stimulation, Hot Packs,Infrared Therapy,Iontophoresis,Ultrasound, Vasopneumatic Devices Next Visit Focus/Plan Next Note Type Treatment Note Next Visit Plan Initiate plan of care per protocol with focus on shoulder PROM and AAROM. Plan of Care Dates Plan of Care Start Date 12/17/24 Plan of Care End Date 03/17/25 Electronically Signed by: Mecca Mcdonald, PT 12/17/24 [id number] If you are in agreement with this Plan of Care, please return a signed and dated copy. I have reviewed this Plan of Care and certify that the skilled therapy services above are required to meet the patient?s needs. Physician Signature Date Printed Name and Credentials Clinical Instructor Signature Printed Name and Credentials
--- NOTE | 2024-12-23 13:12 | PT-OP ANOTE ---
Voicemail left for pt regarding missed PT appointment today and No Show policy. Pt encouraged to call front attendant [phone] to communicate and reschedule as needed.
--- NOTE | 2024-12-25 16:09 | PT-OP ANOTE ---
Spoke with pt re: missed PT appointment today. She apologizes and states she thought next appointments are next week and she doesn't believe she got a text message reminder for today's. She has been feeling unwell dealing with an intestinal issue. She is reminded of No Show policy and would like to reschedule to tomorrow 11:30am, and will call or text to cancel if sick, and understands will otherwise be discharged per Patient Compliance Contract. Oven Unloader notified.
--- NOTE | 2024-12-30 14:54 | PT.OTN ---
Current Diagnoses Pain, unspecified (12/30/24) Physical Therapy Treatment Note PT OP: Cervical/Upper Extremity Start: 12/17/24 13:10 Freq: Status: Active Protocol: Document 12/30/24 14:00 ZEV (Rec: 12/30/24 14:53 [id number]) Out-Patient Physical Therapy Visit Information Visit Information Visit Type Treatment Note Visit Start Time 14:00 Visit Stop Time 14:40 Visit Number 2 Number of CERAMIC ENGINEER Visits 0 Progress Note Due 01/16/25 OP-PT Subjective Patient Comments Patient Comments Patient reports she has not had shoulder pain. She has not been working on all her home exercises and reports she has not been totally compliant with her AROM and lifting precautions. Therapeutic Exercises Sitting Exercises Scapular AROM Sitting Exercise Retraction, protraction, elevation, depression Name Reps/Minutes x30 each direction Scaption table slides PROM Reps/Minutes x30 Flexion table slides PROM Reps/Minutes x30 Standing Exercises Pendulumns Standing Exercise clockwise, counter-clockwise, side to side, front to Name back Reps/Minutes x30 each direction Manual Therapy Treatment Consent Patient gave verbal Yes consent for manual treatment Manual Techniques Manual PROM Comments Flexion PROM x5 mins Abduction PROM x5 mins ER PROM at 30 degrees scapation x2 mins Physical Therapy Assessment Goals Three Impairment Strength Short Term Goal (STG Patient will demonstrate an increase in R shoulder ) strength to 3+/5 in order to better function with lifting. STG Duration 8 weeks Fpc Goal (LTG) Patient will demonstrate an increase in R shoulder strength to 4/5 in order to better function with lifting. LTG Duration 12 weeks Two Impairment General function Short Term Goal (STG Patient will demonstrate a reduction in QuickDASH score ) to 42 in order to show an reduction in self-perceived disability. STG Duration 4 weeks Industrial Equipment Wirer Goal (LTG) Patient will demonstrate a reduction in QuickDASH score to 32 in order to show an reduction in self-perceived disability. LTG Duration 8 weeks One Impairment Shoulder ROM Short Term Goal (STG Patient will demonstrate an increase in shoulder ) flexion AAROM to 130 degrees in order to progress towards better function with reaching activities. STG Duration 4 weeks [employer] Equipment Wirer Goal (LTG) Patient will demonstrate an increase in shoulder flexion AAROM to 160 degrees in order to progress towards better function with reaching activities. LTG Duration 6 weeks Assessment Summary Assessment Treatment focused on R shoulder PROM per protocol. Patient tolerated treatment well with no lasting increases in symptoms. Plan next session to follow up on compliance with precautions and continue with plan of care. Physical Therapy Plan Frequency and Duration Frequency of 2x/Week Treatment Duration of 12 treatment (weeks) Plan of Care Start 12/17/24 Date Plan of Care End 03/17/25 Date Next Visit Focus/Plan Next Note Type Treatment Note Next Visit Plan Initiate plan of care per protocol with focus on shoulder PROM and AAROM.
--- NOTE | 2025-01-23 14:09 | PT.OPDS ---
Current Diagnoses Pain, unspecified (12/30/24) Visit Care Team Role Provider Type Josie Gould MD Family Provider Physician Primary Care Provider Specialty: Family Practice [employer] Address: [place], [address] Email: [email or web address] Veras DO Attending Provider Physician Referring Provider Specialty: Orthopedics Orthopedic Surgery Address: [address] [place] [address] [place], [address] Email: [email or web address] Visit Number Visit Number 2 Discharge Summary PT OP: Cervical/Upper Extremity Start: 12/17/24 13:10 Freq: Status: Active Protocol: Document 01/23/25 13:43 JZ (Rec: 01/23/25 13:46 [id number]) Out-Patient Physical Therapy Visit Information Visit Information Visit Type Discharge Summary Physical Therapy Assessment Assessment Summary Assessment Patient has cancelled her remaining PT appointments and has not reached out to schedule more. Patient has been called multiple times to schedule more visits but has not been reached. Episode of care will be discharged at this time due to lack of follow up.
== END 2025-01-27 09:50 | disposition home or self-care (01) ==
LOC: PHYS 13:45
PROVIDERS: Family Provider Family Medicine; PCP Family Medicine; Referring Provider Orthopaedic Surgery; Visit Provider Orthopaedic Surgery
DX: R52 Pain, unspecified (principal)
CPT/HCPCS: 97110; 97140; 97161